=== PATIENT | female | born 1945 | race Caucasian/White ===

== ENCOUNTER 2022-03-06 12:37 | Outpatient (CLI) | payer MEDICARE | END 2022-03-06 12:38 | disposition home or self-care (01) | LOC: ULT 12:37 | PROVIDERS: ATTEND Internal Medicine Nephrology | DX: N18.1 Chronic kidney disease, stage 1 (principal); Q16.9 Congenital malformation of ear causing impairment of hearing, unspecified; N28.9 Disorder of kidney and ureter, unspecified; N28.1 Cyst of kidney, acquired | CPT/HCPCS: 76770 ==

== ENCOUNTER 2022-10-06 14:56 | Outpatient (CLI) | payer MEDICARE, OTHER | END 2022-10-06 14:57 | disposition home or self-care (01) | LOC: ULT 14:56 | PROVIDERS: ATTEND Internal Medicine Nephrology | DX: N18.1 Chronic kidney disease, stage 1 (principal) | CPT/HCPCS: 76770 ==